=== PATIENT | male | born 1950 | race Caucasian/White ===

== ENCOUNTER 2018-07-05 00:18 | Observation (INO) | payer BC ==
--- NOTE | 2018-07-05 00:23 | ED ---
Headache - HPI Summary HPI Summary: A 67 y/o M brought in by ambulance presents to ED with c/o severe and worsening WEBBER onset 1100 three days ago from this date. The WEBBER is constant and pounding. He has no PMHx: migraines. He went to bed and woke up at approx. 2100 yesterday and was unable to see or focus. He was looking at a phone book and was unable to see the numbers. He felt confused and had nausea. Denies fever, chills. He takes medication for HTN, HDL. Denies blood thinners. Denies any neuro history. Pt is visiting [place] from [place] for work. - History Of Current Complaint Stated Complaint: "HEADACHE" PER EMS Hx Obtained From: Patient Onset/Duration: Started days ago, Still Present Initially Headache Was: Moderate Currently Pain Is: Current Pain Scale(0-10)= - 10, Severe Timing: Constant Character: Throbbing - pounding Associated Signs And Symptoms: Nausea, Other (Noted In Comments) - pos: confusion, unable to see, unable to focus. neg: fever, chills. - Allergies/Home Medications Allergies/Adverse Reactions: Allergies Allergy/AdvReac Type Severity Reaction Status Date / Time No Known Allergies Allergy Verified 07/05/18 01:09 Home Medications: Home Medications Amlodipine Besylate [Norvasc] 10 mg PO DAILY 07/05/18 [History Confirmed ] Hydrochlorothiazide TAB* [Hydrodiuril TAB*] 25 mg PO DAILY 07/05/18 [History Confirmed 07/05/18] Irbesartan 300 mg PO DAILY 07/05/18 [History Confirmed 07/05/18] Metformin HCl 500 mg PO DAILY 07/05/18 [History Confirmed 07/05/18] Rosuvastatin Calcium 20 mg PO DAILY 07/05/18 [History Confirmed 07/05/18] PMH/Surg Hx/FS Hx/Imm Hx Previously Healthy: No Cardiovascular History: Reports: Hx Hypercholesterolemia, Hx Hypertension Neurological History: Denies: Hx CVA, Hx Dementia, Hx Transient Ischemic Attacks (TIA) - Social History Occupation: Employed Full-time Review of Systems Negative: Fever, Chills Positive: Other - pos: vision changes Positive: Nausea Neurological: Other - pos: confusion, unable to focus Positive: Headache - severe All Other Systems Reviewed And Are Negative: Yes Physical Exam - Summary Physical Exam Summary: Appearance: Ill-appearing, Well-nourished, lying in bed comfortably, no acute distress but holding his eyes closed, R more so than L Skin: Warm, dry, no obvious rash Eyes: sclera anicteric, no conjunctival pallor ENT: mucous membranes moist, pharynx appears normal Neck: Supple, nontender Respiratory: Clear to auscultation, no signs of respiratory distress Cardiovascular: Normal S1, S2. No murmurs. Normal distal pulses in tibial and radial bilaterally. Abdomen: Soft, nontender, normal active bowel sounds present Musculoskeletal: Normal, Strength/ROM Intact, Motor function in all 4 extremities is normal and symmetric. There is no rigidity or tremor noted. Neurological: A&Ox3, awake and alert, mentation is normal, speech is fluent and appropriate, Level of consciousness nml. The patient is alert and oriented. Cranial nerves are grossly intact. Gaze is conjugate and without nystagmus. Peripheral vision is intact to confrontation. There are no gross sensory abnormalities to light touch. There is no truncal or fine motor ataxia. Gait is normal. Psychiatric: affect is normal, does not appear anxious or depressed Triage Information Reviewed: Yes Vital Signs Reviewed: Yes - [place] Coma Scale Best Eye Response: 4 - Spontaneous Best Motor Response: 6 - Obeys Commands Best Verbal Response: 5 - Oriented Coma Scale Total: 15 Procedures - Lumbar Puncture 1 Position: Sitting Anesthesia Used: 2.0% Lido Spinal Needle Used: 22 Gauge Lumbar Puncture Note: At the L3-L4 interspace. Clear, colorless CSF. Diagnostics - Laboratory Result Diagrams: 07/05/18 00:58 07/05/18 00:58 Lab Statement: Any lab studies that have been ordered have been reviewed, and results considered in the medical decision making process. - CT BRAIN CT CT Interpretation Completed By: Radiologist Summary of CT Findings: IMPRESSION: No acute intracranial findings. ED provider has reviewd this report. - EKG 0039 Cardiac Rate: NL - at 79bpm EKG Rhythm: Sinus Rhythm Summary of EKG Findings: NSR at 79 BPM, P waves, QRS complex, and T waves are within normal limits, T waves and intervals are normal, no ischemic changes. Headache Course/Dx - Course Course Of Treatment: Pt is a 67 y/o M presenting with severe, constant WEBBER onset 1100 three days ago from this date. He woke up at approx. 2100 yesterday and was unable to see or focus. Brain CT shows no acute intracranial findings. LP performed. Pt in seated position, 2% lido used with 22 guage needle at L3-L4 interspace, clear and colorless CSF. CSF analysis is fairly unremarkable only mildly elevated protein and glucose levels. The etiology of his headache and altered mental status is unclear at this time, the patient will need to be admitted for further workup. Consulted with Dr. Tracy, hospitalist, who will admit pt. - Diagnoses Differential Diagnosis/HQI/PQRI: CVA, Meningitis, Migraine, Subarachnoid Hemorrhage, Tension Headache, Viral Syndrome Provider Diagnoses: Severe headache, Altered mental status - Physician Notifications Discussed Care Of Patient With: Sofia Tracy - hospitalist Time Discussed With Above Provider: 02:14 Instructed by Provider To: Admit As Inpatient Discharge - Sign-Out/Discharge Documenting (check all that apply): Patient Departure - ADMIT Patient Received Moderate/Deep Sedation with Procedure: No - Discharge Plan Condition: Fair Disposition: ADMITTED TO [facility] - Billing Disposition and Condition Condition: FAIR Disposition: Admitted to [facility] - Attestation Statements Document Initiated by Scribe: Yes Documenting Scribe: Evelyn Lee Provider For Whom Scribe is Documenting (Include Credential): Dr. Edenilson Vlae MD Scribe Attestation: Evelyn Fang scribed for Dr. Edenilson Vale MD on 07/05/18 at 0438. Scribe Documentation Reviewed: Yes Provider Attestation: The documentation as recorded by the Evelyn dominguez accurately reflects the service I personally performed and the decisions made by , Dr. Edenilson Vale MD Status of Scribe Document: Viewed
[2018-07-05] MEDS ORDERED: Lidocaine 2% EPI 1:200000 MPF* 10 ML VIAL INJ ONE (00:38)
[2018-07-05] MEDS ORDERED: Lidocaine 2% EPI 1:200000 MPF*10-20 ML VIAL ONE (00:41)
[2018-07-05] MEDS ORDERED: Morphine 10 MG/ML VIAL (1 ml) ONE (00:52)
[2018-07-05] MEDS ORDERED: Morphine 4 MG/ML VIAL (1 ml) 4 MG/ML VIAL IV ONE (00:53)
[2018-07-05] MEDS ORDERED: Ondansetron INJ* 2 MG/ML VIAL IV ONE (00:57)
[2018-07-05] MEDS ORDERED: Ondansetron INJ* 2 MG/ML VIAL ONE (00:58)
[2018-07-05 01:13] LABS: ABS Basophils 0 10^3/ul (0-0.2); ABS Eosinophils 0.2 10^3/ul (0-0.6); ABS Lymphocytes 2.3 10^3/ul (1.0-4.8); ABS Monocytes 1.3 10^3/ul (0-0.8); ABS Neutrophils 4.4 10^3/ul (1.5-7.7); ABS Nucleated RBC 0 10^3/ul; Eosinophil % 2.6 %; Hematocrit 50 % (36-46); Hemoglobin 17.1 g/dL (14.0-18.0); Lymphocyte % 28.5 %; Mean Corpuscular HGB Conc 34 g/dL (31-36); Mean Corpuscular Hemoglobin 31 pg (27-31); Mean Corpuscular Volume 92 fL (80-94); Mean Platelet Volume 8.8 fL (7.4-10.4); Nucleated Red Blood Cells % 0.1; Platelet Count 274 10^3/uL (150-450); Red Blood Count 5.46 10^6 /uL (4.18-5.48); Red Cell Distribution Width 13 % (10.5-15); White Blood Count 8.2 10^3/uL (3.5-10.8)
[2018-07-05 01:17] LABS: Body Fluid Source Cerebral Spinal
[2018-07-05 01:29] LABS: INR 0.99 (0.82-1.09)
[2018-07-05 01:33] LABS: ALT 57 U/L (7-52); AST 36 U/L (13-39); Albumin 4.3 g/dL (3.2-5.2); Albumin/Globulin Ratio 1.5 (1-3); Alkaline Phosphatase 86 U/L (34-104); Anion Gap 8 mmol/L (2-11); BUN/Creatinine Ratio 13.4 (8-20); Blood Urea Nitrogen 15 mg/dL (6-24); CO2 Carbon Dioxide 26 mmol/L (22-32); Calcium 9.4 mg/dL (8.6-10.3); Chloride 102 mmol/L (101-111); EGFR African American 79.6 (>60); EGFR Non-African American 65.8 (>60); Globulin 2.9 g/dL (2-4); Glucose 133 mg/dL (70-100); Potassium 3.8 mmol/L (3.5-5.0); Sodium 136 mmol/L (135-145); Total Protein 7.2 g/dL (6.4-8.9)
[2018-07-05 01:40] LABS: CSF Glucose 84 mg/dL (40-70)
[2018-07-05 01:43] LABS: CRP High Sensitivity 1.17 mg/L (<2.00)
[2018-07-05 02:24] LABS: Alcohol < 10 mg/dL (<10)
[2018-07-05] MEDS ORDERED: Iohexol 350* (CONTRAST) 500 ML MDV IV ONE (02:48)
[2018-07-05 02:51] LABS: Erythrocyte Sed Rate 2 mm/Hr (0-19)
[2018-07-05] MEDS ORDERED: Al Hydrox/Mg Hydrox/Simet LIQ* 30 ML UDC PO PRN (03:03)
[2018-07-05] MEDS ORDERED: Acetaminophen TAB* 325 MG PO PRN (03:03)
[2018-07-05] MEDS ORDERED: oxyCODONE/Acetamin 5/325 MG* TAB PO PRN (03:03)
[2018-07-05] MEDS ORDERED: Aspirin 81 mg CHEW TAB* 81 MG TAB.CHEW PO ONE (03:06)
[2018-07-05] MEDS ORDERED: Atorvastatin* 40 MG TAB PO ONE (03:07)
[2018-07-05] MEDS ORDERED: Iodixanol 320 (CONTRAST) 100 ML SDV IV ONE (03:09)
[2018-07-05 03:58] LABS: Cholesterol 254 mg/dL; HDL Cholesterol 32.4 mg/dL; Triglycerides 483 mg/dL
[2018-07-05 04:11] LABS: LDL Cholesterol Direct 152 mg/dL
[2018-07-05] MEDS ORDERED: LORazepam TAB(*) 1 MG PO SCH (05:00)
[2018-07-05] MEDS: Heparin VIAL(*) 5000 UNITS/ML VIAL (FIVE THOUSAND) SUBCUT SCH ×2 (05:33→13:25)
--- NOTE | 2018-07-05 05:33 | HP ---
CC: Dr. Bailon, [place], [place] * HISTORY AND PHYSICAL: DATE OF ADMISSION: 07/05/18 TIME OF EVALUATION: 0300. PRIMARY CARE PHYSICIAN: Dr. Bailon. CHIEF COMPLAINT: Headache with altered mental status. HISTORY OF PRESENT ILLNESS: This is a 67-year-old male with past medical history of hypertension, diabetes, and hyperlipidemia, who presented to the emergency room with worsening headache in the setting of altered mental status. The patient states he is currently in [place] on a work trip. 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 The following day, he states he lay on the couch most of the day for the persistent headache. Today, he drove to [place] early this morning for a work-related event and he was staying at a hotel. His headache continued and persisted. He has been taking Tylenol throughout this without any relief. He woke up during the night. He could not see, could not focus. He could not remember anyone's name to call them. He crawled out of bed. He was disoriented and nauseated with this persistent headache that has now shifted to the left side of the posterior head. He finally took some time but was able to call his colleague who was also on this work trip, who found him on the ground. He stated he was disoriented, confused, seemed in pain, speech appeared normal, and they brought him here to the emergency room for further evaluation. The patient states his blood pressure is usually well controlled when he sees his doctor. He did not take his blood pressure medication today because of his headache. He denied any recent medication changes. No fevers. No URI symptoms. No changes in his weight. He denied any focal weakness. No loss of consciousness. No numbness or tingling. He states he had blurry vision with vision changes when he first woke up. Denied any head trauma. Otherwise, remaining review of systems negative. He also denied any photophobia or phonophobia. In the emergency room, the patient had labs and imaging, he had an LP, and he was referred to the hospitalist service for further evaluation. PAST MEDICAL HISTORY: 1. Hyperlipidemia. 2. Diabetes. 3. Hypertension. 4. History of migraines as a teenager. MEDICATIONS: 1. Rosuvastatin 20 mg p.o. daily. 2. Metformin 500 mg daily. 3. Irbesartan 300 mg daily. 4. Hydrochlorothiazide 25 mg daily. 5. Amlodipine 10 mg daily. ALLERGIES: No known drug allergies. FAMILY HISTORY: Father from lung cancer. Mother from Alzheimer's. SOCIAL HISTORY: The patient lives at home with his who is his healthcare proxy. Admits to drinking 4 beers per day. No history of smoking or drugs. He works a desk job doing construction. REVIEW OF SYSTEMS: A 14-point review of systems as mentioned in the HPI, otherwise, negative. CODE STATUS: Full code. PHYSICAL EXAMINATION GENERAL: No acute distress. Resting comfortably with his at the bedside. VITAL SIGNS: Temp is 98.9, pulse rate is 80, respiratory rate is 18, oxygen saturation is 94% on room air, blood pressure 144/108. HEENT: Head normocephalic. Pupils are equal and reactive. Anicteric. Oropharynx: Mucous membranes moist. NECK: Supple. No lymphadenopathy. RESPIRATORY: Diminished breath sounds. No wheeze, rhonchi or rales. CARDIAC: Regular rate and rhythm. Soft systolic murmur heard throughout. ABDOMEN: Soft, nontender, nondistended. EXTREMITIES: No clubbing, cyanosis or edema. NEUROLOGIC: The patient is alert and oriented x2. Cranial nerves II through XII intact. Negative pronator drift. Upper and lower muscle strength normal. Heel to sands test normal. DIAGNOSTIC STUDIES/LAB DATA: White count 8.2, hematocrit 50, platelets 274, INR is 0.99. Sodium 136, potassium 3.8, chloride 102, bicarb 26, BUN 15, creatinine 0.12, glucose 133. AST is 36, ALT is 57. CRP is 1.17. CSF: 0 white blood cells, glucose 84, proteins 46. Alcohol negative. Radiographic data shows no acute intracranial findings. EKG: Normal sinus rhythm. ASSESSMENT: This is a 67-year-old male with a past medical history of hypertension, diabetes, and hyperlipidemia, who presents to the emergency room with worsening headache in the setting of disorientation and vision changes. 1. Headache with vision changes. Assessment: Unclear of the exact etiology. The patient's initial workup is unremarkable. The LP is negative. Unlikely infectious and ruled out subarachnoid hemorrhage. This could be hypertensive emergency, could also be a transient ischemic attack related event. Also could be a migraine as well. Plan: We will admit [facility] to [facility]. We will work him up for a TIA. We will slowly bring his blood pressure back down with his home medications. We will order a CT of the head and neck as well as an MRI. We will obtain an echo, add on a lipid panel, hemoglobin A1c. spot remover his Crestor to atorvastatin for now, give him a full aspirin dose, and start him on the baby aspirin. Neuro check q.4 hours. Consider neurology consultation if headache persists. 2. Alcohol use. The patient has 4 drinks per day. His alcohol level is negative at this time. We will place him on a [facility] protocol to monitor him for any signs of withdrawal. 3. Chronic medical problems: Hypertension as mentioned, elevated, could be related to his presentation. We will place him back on his home medication. 4. Diabetes. Hold his oral agents, place him on lispro sliding scale. 5. Hyperlipidemia. Check a lipid panel, switch him over to atorvastatin for now. 6. FEN: Placed the patient on a heart healthy diet once he passes a bedside swallow. 7. DVT prophylaxis: The patient scores moderate risk. We will place him on heparin subcu t.i.d. 8. Code status: Full code. PATIENT TIME: Greater than 50 minutes was spent doing the history and physical , more than half the time spent in direct patient contact. [id number]/CPS #: [id number] [place]
[2018-07-05] MEDS ORDERED: Heparin VIAL(*) 5000 UNITS/ML VIAL (FIVE THOUSAND) SUBCUT SCH (06:00)
[2018-07-05 08:57] LABS: Urine Appearance Clear; Urine Bilirubin Negative (Negative); Urine Blood Negative (Negative); Urine Color Yellow; Urine Glucose Negative (Negative); Urine Ketones Negative (Negative); Urine Nitrite Negative (Negative); Urine Protein Negative (Negative); Urine Specific Gravity 1.056 (1.010-1.030); Urine Urobilinogen Negative (Negative)
[2018-07-05] MEDS ORDERED: Multivitamins/Minerals TAB PO SCH (09:00)
[2018-07-05] MEDS ORDERED: Hydrochlorothiazide TAB* 25 MG PO SCH (09:00)
[2018-07-05] MEDS ORDERED: Folic Acid TAB* 1 MG PO SCH (09:00)
[2018-07-05] MEDS ORDERED: amLODIPine TAB* 5 MG PO SCH (09:00)
[2018-07-05] MEDS ORDERED: Aspirin 81 mg CHEW TAB* 81 MG TAB.CHEW PO SCH (09:00)
[2018-07-05] MEDS ORDERED: Thiamine TAB* 100 MG TAB PO SCH (09:00)
[2018-07-05] MEDS ORDERED: Losartan TAB* 25 MG PO SCH (09:00)
[2018-07-05 09:23] LABS: Urine Benzodiazepine Screen None Detected (None Detect); Urine Opiates Screen Presumptive Positive (None Detect)
--- NOTE | 2018-07-05 11:31 | ECHO ---
*[facility]* [place] [address] Fax #: [phone] Transthoracic Echocardiogram Patient: Gena, Height: 70 in / Mendoza Courtney 177.8 cm : 1950 Weight: 218.5 lb / Study Date: 07/05/2018 99.3 kg Age: 67 BP: 124 / 84 Gender: M BMI/BSA: 31.4 kg/m^2 HR: 64 bpm / 2.17 m^2 *[employer]: * Judi Bobby *Referring Physician: * Sofia Tracy *Reading Physician: * Carmelo Moore Indications: TIA. History: Murmur. Risk factors: Hypertension. Diabetes mellitus. Dyslipidemia. Conclusions Summary: 1. Left ventricle: Systolic function is mildly reduced. The estimated ejection fraction is 40-45%. Hypokinesis of the entire myocardium. 2. Atrial septum: Bubble study was negative 3. Mitral valve: There is trivial regurgitation. 4. Aortic valve: There is no evidence of stenosis. 5. Tricuspid valve: There is physiologic regurgitation. 6. Impressions: No previous study was available for comparison. Study data: Transthoracic echocardiogram. Procedure: Transthoracic echocardiography was performed. Image quality was fair. Intravenous contrast (agitated saline) was administered. A bubble study was performed. Complete 2D, spectral Doppler, and color flow Doppler. Location: Bedside. Patient status: Inpatient. Patient room number: 441-2. Rhythm: Normal sinus rhythm. Findings Left ventricle: The cavity size is normal. Wall thickness is moderately increased. Systolic function is mildly reduced. The estimated ejection fraction is 40-45%. Regional wall motion abnormalities: Hypokinesis of the entire myocardium. Doppler parameters are consistent with abnormal left ventricular relaxation (grade 1 diastolic dysfunction). Right ventricle: The cavity size is mildly dilated. Systolic function is low normal. Left atrium: The atrium is normal in size. Right atrium: The atrium is normal in size. Atrial septum: Bubble study was negative Images 91-93. Mitral valve: The leaflets are mildly thickened. There is no evidence of stenosis. There is trivial regurgitation. Aortic valve: The valve is trileaflet. The leaflets are mildly thickened. There is no evidence of stenosis. There is trivial regurgitation. The peak systolic gradient is 3.0 mm Hg. Tricuspid valve: The leaflets are normal thickness. There is no evidence of stenosis. There is physiologic regurgitation. Pulmonic valve: The leaflets are normal thickness. There is no evidence of stenosis. There is trivial regurgitation. The peak systolic gradient is 3.0 mm Hg. Aorta: Aortic root: The aortic root is mildly dilated. Ascending aorta: The ascending aorta measures 4.0 cm (AP) and is mildly dilated. Aortic arch: The aortic arch is appears normal. Pericardium: There is no pericardial effusion. Pulmonary arteries: Unable to estimate PASP. The main pulmonary artery is normal-sized. Systemic veins: Inferior vena cava: The vessel is mildly dilated. The respirophasic diameter changes are in the normal range (>= 50%). Measurements Left ventricle Value Ref Left atrium Value Ref EMILI, LAX (L) 3.7 cm 4.2 - AP dim, ES 3.60 cm 3.00 - 5.8 4.00 ESD, LAX 3.0 cm 2.5 - ML dim, A4C 4.4 cm 4.0 Vol/bsa, ES, 1-p 30 ml/m^2 12 - 37 ESD/bsa, LAX 1.4 cm/m^2 1.3 - A4C 2.1 Vol/bsa, ES, A/L 26 ml/m^2 16 - 34 FS, LAX (L) 20 % 25 - 43 PW, ED, LAX (H) 1.3 cm 0.6 - Right atrium Value Ref 1.0 SI dim, ES 5.3 cm 3.4 - 5.3 PW/ID, ED, LAX 0.34 -------- SI dim/bsa, ES 2.4 cm/m^2 1.8 - 3.0 EMILI (L) 3.7 cm 4.2 - SI dim, ES, A4C 5.3 cm 3.4 - 5.3 5.8 SI dim/bsa, ES, 2.4 cm/m^2 1.8 - 3.0 ESD 3.0 cm 2.5 - A4C 4.0 EMILI/bsa (L) 1.7 cm/m^2 2.2 - Aortic valve Value Ref 3.0 Jarrett diam, ED 2.0 cm ESD/bsa 1.4 cm/m^2 1.3 - Jarrett diam/bsa, ED 0.9 cm/m^2 2.1 Peak v, S 0.91 m/sec FS (L) 20 % 25 - 43 Mean v, S 0.65 m/sec Mid-wall FS 7 % -------- VTI, S 20.0 cm PW, ED (H) 1.3 cm 0.6 - Peak grad, S 3.0 mm Hg 1.0 IVS/PW, ED 1.02 -------- Mitral valve Value Ref PW/ID, ED 0.34 -------- Peak E 0.52 m/sec EF (L) 42 % 52 - 72 Peak A 0.77 m/sec Mass 161 g 96 - 200 Decel time 356 ms Mass/bsa 74 g/m^2 50 - 102 Peak E/A ratio 0.7 Mass/ht 90.30 g/m -------- Mass/ht^2.7 33.95 g/m^2.7 -------- Aortic root Value Ref E', lat jarrett, TDI (L) 4.5 cm/sec >=10.0 Root diam 3.7 cm &l t;4.3 E/e', lat jarrett, TDI 12 -------- E', med jarrett, TDI (L) 3.4 cm/sec >=7.0 Ascending aorta Value Re f E/e', med jarrett, TDI 15 -------- AAo AP diam, S 4.0 cm ----- ----- E', avg, TDI 4.0 cm/sec -------- AAo AP diam/bsa, 1.8 cm/m^2 ----- ----- E/e', avg, TDI 13 <=14 S LVOT Value Ref Aortic arch Value Ref Peak halina, S 0.8 m/sec -------- Arch diam 2.6 cm Mean halina, S 0.57 m/sec -------- Arch diam/bsa 1.2 cm/m^2 Mean grad, S 1 mm Hg -------- Decending aorta Value Ref Ventricular septum Value Ref Vivien peak halina 0.45 m/sec IVS, ED, LAX (H) 1.3 cm 0.6 - 1.0 Inferior vena cava Value Ref IVS, ED (H) 1.3 cm 0.6 - Diam 2.4 cm 1.0 Right ventricle Value Ref EMILI, LAX 3.6 cm -------- EMILI minor ax, A4C (H) 4.4 cm 1.9 - mid 3.5 Legend: (L) and (H) iflemon values outside specified reference range. Prepared and electronically signed by Carmelo Moore 07/05/2018 11:30
[2018-07-05 14:11] VITALS: BP 158/89
--- NOTE | 2018-07-06 02:28 | DS ---
DISCHARGE SUMMARY: DATE OF ADMISSION: 07/05/18 DATE OF DISCHARGE: 07/05/18 PRIMARY CARE PHYSICIAN: Follows up his care in [place]. DISPOSITION: To home. CONDITION: Good. PRIMARY DIAGNOSIS: Hypertensive encephalopathy versus acute migraine. SECONDARY DIAGNOSES: 1. Diabetes. 2. Hypertension. 3. Hyperlipidemia. DISCHARGE MEDICATIONS: 1. Aspirin 81 daily. 2. Rosuvastatin 20 mg daily. 3. Metformin 500 mg daily. 4. Irbesartan 300 mg daily. 5. Metoprolol succinate 25 mg daily. 6. Amlodipine 10 mg daily. 7. Hydrochlorothiazide 25 mg daily. HISTORY OF PRESENT ILLNESS: A 67-year-old man with resistant hypertension, diabetes, hyperlipidemia, obesity, who presented to the emergency room with worsening headache in the setting of altered mental status. He was in [place] on a work trip and after volunteering to set up at a baseball game, he developed a focal posterior right-sided headache 2 days prior to presentation. The following day, he states he was lying on his couch for most of the day given this persistent headache. He drove to [place] early in the morning of presentation for a work- related event and was staying at a hotel. His headache persisted and he was taking Tylenol without relief. As he woke up during the night and was not able to see or focus very well, he was not able to remember anyone's name to call them. He states that he crawled out of bed and was disoriented and nauseated and given the persistent headache, he was able to eventually call a colleague who was also on the work trip with him who found him on the ground of the hotel. The colleague stated that the patient had appeared normal, although he was disoriented, confused, and in severe pain. He was brought to the emergency room for further evaluation. Of note, the patient states his blood pressure is usually well controlled when he sees his doctor, although he states that in the ambulance, his blood pressure was 220/130. He denied medication nonadherence or any recent medication changes. No fever, URI symptoms, recent weight changes, focal weakness, loss of consciousness, numbness or tingling. HOSPITAL COURSE: In the emergency room, the patient underwent a lumbar puncture which was unremarkable for infection or evidence of a bleed. He also had complete workup for transient ischemic attack or stroke which were largely unrevealing for ischemic disease, although his brain MRI did show multiple foci of elevated T2/FLAIR signal and an incidentally noted small extraaxial lesion of the right CP angle suggestive of a meningioma. These findings were discussed with Neurology, who thought the findings were not acute and unable to explain his presenting symptoms and recommended followup in clinic. The patient also underwent an echocardiogram which showed a new heart failure with reduced ejection fraction. He did not exhibit any signs of volume overload, but he was started on a beta-sin this admission to optimize him for a heart failure regimen. The results of these tests were explained to the patient with close followup stressed. He states that he prefers to get his care in [place] and prefers to leave the hospital today, although he was amenable to an expedited neurology clinic visit at [facility]. Of note, the patient reports drinking 4 beers daily at least, but he did not exhibit any signs of withdrawal during hospitalization and he was educated to cut back on this given his significant health issues. On the day of discharge, the patient reports feeling somewhat sleepy but thinks it has to do with the fact that he slept poorly overnight given admission. He states his headache is now a 1/10 and he is no longer having visual changes or confusion. His and sister-in- law are at the bedside, agree that the patient seems back to his normal self with just a little bit of sleepiness. The plan and importance of followup of imaging findings was stressed with the patient and his family. PHYSICAL EXAMINATION: Afebrile. Heart rate 70s, blood pressure 158/89, respiratory rate 12, oxygen saturation 97% on room air. In general, he is a well- appearing man in no acute distress. HEENT: Moist mucous membranes. Neck : Unable to appreciate JVP given body habitus. Supple. Respiratory: Clear to auscultation bilaterally. Heart: Regular rate and rhythm. No murmurs, gallops, rubs. Abdomen: Soft, nontender, nondistended. Extremities: No edema. Warm and well perfused. Neuro: A and O x3. Cranial nerves II through XII intact. Strength in all 4 extremities 5/5. [id number] normal bilaterally. PERTINENT STUDIES/LABS: CSF, 0 white blood cells, glucose 84, protein 46. Alcohol level negative. CBC and BMP unremarkable. A1c 6.5%. CT brain, no acute intracranial findings. CTA head and neck, calcification of both carotid bifurcations. No hemodynamically significant narrowing, combination of both hard plaque and soft plaque involving the proximal right ICA in which the narrowing is less than 50%. Kinking of both internal carotid arteries in which no hemodynamically significant stenosis is present. No dissection, no occlusion. The right vertebral artery is hypoplastic. The left vertebral artery shows no hemodynamically significant stenosis. No dissection or occlusion. Brain MRI with multiple foci of elevated T2/FLAIR signal within the periventricular and subcortical white matter. Differential is broad including migraines, sequela of previous infection or inflammation and chronic small vessel ischemia. Demyelinating disease is also in the differential, but it is less likely. Incidentally noted small extraaxial lesion of the right CP angle suggestive of a meningioma. No restricted diffusion to suggest acute infarct. A TTE, left ventricle with reduced systolic function. EF 40% to 55% with hypokinesis of the entire myocardium. Mitral valve with trivial regurge, aortic valve with no evidence of stenosis, and atrial septum with a negative bubble study. DISCHARGE PLAN: The patient is to follow up within 1 week with his primary care physician and was asked to get a referral to cardiology clinic for a non- urgent cardiomyopathy workup. He was started on a beta-sin to optimize his cardiac regimen. He was also given an appointment with Neurology at [facility] in 1 week to follow up his neurologic findings on MRI and possibility of new migraine versus hepatic encephalopathy. He will need close monitoring of his blood pressure as an outpatient given that he has resistant hypertension and he will need to eat a healthy diet, low in processed foods and sugars, and work on increasing his physical activity and decreasing his weight. He was asked to return to the hospital with any recurrence of headache, confusion, or visual disturbance. He was also asked to seek care urgently with chest pain, shortness of breath, lower extremity swelling. TIME SPENT: Approximately 60 minutes spent on discharge of this patient, more than half of which was spent with care coordination at the bedside for interview and exam. [id number]/[facility] #: [id number] [place]
== END 2018-07-05 15:17 | disposition home or self-care (01) ==
LOC: ED 00:18 → INTOOBSV 03:03 → MEDTELE 03:03
PROVIDERS: ADMIT Pediatrics; ATTEND Internal Medicine
DX: R51 Headache (principal); R41.82 Altered mental status, unspecified; I10 Essential (primary) hypertension; E11.9 Type 2 diabetes mellitus without complications; E78.5 Hyperlipidemia, unspecified; Z79.899 Other long term (current) drug therapy
CPT/HCPCS: 36415; 70450; 70496; 70498; 70551; 80053; 80061; 80307; 80320; 81003; 82945; 83036; 83605; 83721; 84157; 85025; 85610; 85652; 86141; 87070; 87205; 89051; 93005; 93306; 96374; 96375; 99284; A9270-GY; G0378; G0480; J1644; J2270; J2405; Q9967